=== PATIENT | male | born 1995 | race Caucasian/White ===

== ENCOUNTER 2022-11-24 17:25 | Emergency (ER) | payer OTHER ==
[2022-11-24 17:32] VITALS: BP 111/67; PULSE 60; RESP 18; TEMP 97.6; BMI 22.1
[2022-11-24] MEDS ORDERED: LIDOCAINE VISCOUS 2% ORAL/TOP 15 ML UNIT-DOSE CUP MM ONE (18:16)
== END 2022-11-24 19:41 | disposition home or self-care (01) ==
LOC: JER 17:25
DX: R07.0 Pain in throat (principal)
CPT/HCPCS: 99283-25